=== PATIENT | male | born 1965 | race Caucasian/White ===

== ENCOUNTER 2017-01-11 10:38 | Emergency (ER) | payer OTHER ==
--- NOTE | 2017-01-11 12:01 | ED NURSING NOTES ---
Clinical Report - Nurses [facility] [address] [place] [address] 01/11/2017 10:39 Patient: MARY SIMON TRIAGE Triage time 10:45 Jan 11 2017. Chief Complaint: FALL while walking (pt taking garbage out fell on metal steps landing on left side, c/o pain, no obvious trauma exteriorally). Alert. No acute distress. SEPSIS SCREEN: Sepsis Screen. Negative (no infection suspected/documented). VIOLETA COMA SCORE: Violeta Coma Scale: 15- eyes open spontaneously (4); best verbal response- oriented x 4 (5); best motor response- obeys commands (6). --10:49 Elsa Wasserman R.N. 10:45 01/11/17. BP: 149/85. HR: 103. RR: 17. O2 saturation: 96%. Temp: 98 F. Pain level now: 03/21. --10:49 Elsa Wasserman R.N. Weight: 117.9 kg stated. Height/Length: 72 inches Per Patient. BMI: 35.3. --10:47 Elsa Wasserman R.N. Medications None. --10:46 Elsa Wasserman R.N. Medication/allergy information source: the patient. --10:49 Elsa Wasserman R.N. Allergies Penicillin. --10:46 Elsa Wasserman R.N. Codeine. --10:46 Elsa Wasserman R.N. Hydrocodone. --10:46 Elsa Wasserman R.N. History Arrived by private vehicle. Historian: patient. This occurred today. Treatment INSTRUCTIONAL TECHNOLOGY SPECIALIST: None. PAST MEDICAL HX: Tetanus status: up-to-date. Immunizations: up-to-date. SOCIAL HX: Never smoker. No alcohol use or drug use. No infectious disease exposure. ABUSE ASSESSMENT: No report of abuse. SELF HARM ASSESSMENT: A self harm assessment was performed. The patient answered "no" to the question "Do you have thoughts of harming or killing yourself?". FALL RISK ASSESSMENT: Fall risk assessment completed. No fall risk identified. NUTRITIONAL RISK ASSESSMENT: The nutritional risk assessment revealed no deficiencies. FUNCTIONAL ASSESSMENT: Functional assessment: no impairments noted. LEARNING NEEDS ASSESSMENT: The learning needs assessment revealed no barriers. SKIN INTEGRITY ASSESSMENT: Skin integrity risk assessment completed. No skin integrity risk identified. --10:49 Elsa Wasserman R.N. ADDITIONAL SURGERIES: Ankle ortho. --10:47 Elsa Wasserman R.N. Interventions ID and allergy band on patient. --10:49 Elsa Wasserman R.N. PHYSICAL ASSESSMENT Ambulatory to room. Patient gowned. GENERAL / NEURO / PSYCH: Alert. Oriented X 4. Appears in no acute distress. HEENT: Pupils equal, round and reactive to light. RESPIRATORY: Respirations not labored. CVS: Left breast area : tenderness. EXTREMITIES: Extremities exhibit normal ROM. Neuro-vascular status intact to the extremity. SKIN: Skin intact. Skin is warm and dry. --10:49 PageElsa Tobias R.N. NURSING PROGRESS NOTES Patient gowned. Reassurance given. Patient identifiers checked. Call light placed in reach. Side rails up x 1. Bed placed in lowest position. Brakes of bed on. Patient ready for evaluation- chart flagged. Patient waiting for evaluation. --10:49 Elsa Wasserman R.N. 11:44 01/11/2017 Percocet (Oxycodone-Acetaminophen) PO 10/650 mg Tablets 1 tab given. Allergies verified, confirmed 5 rights and sedative warning given to the patient. --11:44 Elsa Wasserman R.N. Patient waiting for radiology results. ( pt returned from xray- med given for pain). --11:45 Elsa Wasserman R.N. ( MD with pt explaining poc for dispo). --12:07 Elsa Wasserman R.N. DISPOSITION / DISCHARGE No learning barriers present. Discharge instructions provided and reviewed with the patient. Reviewed medication(s) side effects, precautions, dosing and course information. Prescription(s) given to the patient. Patient verbalized understanding. Written instructions provided in Japanese. The patient was discharged by the physician. He was discharged home. He left the Emergency Department ambulatory. Rotary Furnace Operator driving. ( pt given rx and f/u instructions, pt ambulatory to lobby with steady gait,). --12:28 Elsa Wasserman R.N. 12:27 01/11/17. BP: 135/74. HR: 96. RR: 17. O2 saturation: 96%. Temp: deferred. Pain level now: 02/18. --12:28 Elsa Wasserman R.N. Locked/Released at 01/11/2017 15:20 by Elas Wasserman R.N.
--- NOTE | 2017-01-11 12:01 | ED NURSING NOTES ---
Clinical Report - Nurses [facility] [address] [place] [address] 01/11/2017 10:39 Patient: MARY SIMON TRIAGE Triage time 10:45 Jan 11 2017. Chief Complaint: FALL while walking (pt taking garbage out fell on metal steps landing on left side, c/o pain, no obvious trauma exteriorally). Alert. No acute distress. SEPSIS SCREEN: Sepsis Screen. Negative (no infection suspected/documented). VIOLETA COMA SCORE: Vio[place] Coma Scale: 15- eyes open spontaneously (4); best verbal response- oriented x 4 (5); best motor response- obeys commands (6). --10:49 Elsa Wasserman R.N. 10:45 01/11/17. BP: 149/85. HR: 103. RR: 17. O2 saturation: 96%. Temp: 98 F. Pain level now: 03/21. --10:49 Elsa Wasserman R.N. Weight: 117.9 kg stated. Height/Length: 72 inches Per Patient. BMI: 35.3. --10:47 Elsa Wasserman R.N. Medications None. --10:46 Elsa Wasserman R.N. Medication/allergy information source: the patient. --10:49 Elsa Wasserman R.N. Allergies Penicillin. --10:46 Elsa Wasserman R.N. Codeine. --10:46 Elsa Wasserman R.N. Hydrocodone. --10:46 Elsa Wasserman R.N. History Arrived by private vehicle. Historian: patient. This occurred today. Treatment ICT CUSTOMER SUPPORT OFFICER: None. PAST MEDICAL HX: Tetanus status: up-to-date. Immunizations: up-to-date. SOCIAL HX: Never smoker. No alcohol use or drug use. No infectious disease exposure. ABUSE ASSESSMENT: No report of abuse. SELF HARM ASSESSMENT: A self harm assessment was performed. The patient answered "no" to the question "Do you have thoughts of harming or killing yourself?". FALL RISK ASSESSMENT: Fall risk assessment completed. No fall risk identified. NUTRITIONAL RISK ASSESSMENT: The nutritional risk assessment revealed no deficiencies. FUNCTIONAL ASSESSMENT: Functional assessment: no impairments noted. LEARNING NEEDS ASSESSMENT: The learning needs assessment revealed no barriers. SKIN INTEGRITY ASSESSMENT: Skin integrity risk assessment completed. No skin integrity risk identified. --10:49 Elsa Wasserman R.N. ADDITIONAL SURGERIES: Ankle ortho. --10:47 Elsa Wasserman R.N. Interventions ID and allergy band on patient. --10:49 Elsa Wasserman R.N. PHYSICAL ASSESSMENT Ambulatory to room. Patient gowned. GENERAL / NEURO / PSYCH: Alert. Oriented X 4. Appears in no acute distress. HEENT: Pupils equal, round and reactive to light. RESPIRATORY: Respirations not labored. CVS: Left breast area : tenderness. EXTREMITIES: Extremities exhibit normal ROM. Neuro-vascular status intact to the extremity. SKIN: Skin intact. Skin is warm and dry. --10:49 PageElsa Tobias R.N. NURSING PROGRESS NOTES Patient gowned. Reassurance given. Patient identifiers checked. Call light placed in reach. Side rails up x 1. Bed placed in lowest position. Brakes of bed on. Patient ready for evaluation- chart flagged. Patient waiting for evaluation. --10:49 Elsa Wasserman R.N. 11:44 01/11/2017 Percocet (Oxycodone-Acetaminophen) PO 10/650 mg Tablets 1 tab given. Allergies verified, confirmed 5 rights and sedative warning given to the patient. --11:44 Elsa Wasserman R.N. Patient waiting for radiology results. ( pt returned from xray- med given for pain). --11:45 Elsa Wasserman R.N. ( MD with pt explaining poc for dispo). --12:07 Elsa Wasserman R.N. DISPOSITION / DISCHARGE No learning barriers present. Discharge instructions provided and reviewed with the patient. Reviewed medication(s) side effects, precautions, dosing and course information. Prescription(s) given to the patient. Patient verbalized understanding. Written instructions provided in Persian. The patient was discharged by the physician. He was discharged home. He left the Emergency Department ambulatory. Oil Dipper driving. ( pt given rx and f/u instructions, pt ambulatory to lobby with steady gait,). --12:28 Elsa Wasserman R.N. 12:27 01/11/17. BP: 135/74. HR: 96. RR: 17. O2 saturation: 96%. Temp: deferred. Pain level now: 02/18. --12:28 Elsa Wasserman R.N. Locked/Released at 01/11/2017 15:20 by Elsa Wasserman R.N.
--- NOTE | 2017-01-11 12:01 | ED ORDER SUMMARY ---
..... Patient: MARY SIMON OrderSheet [facility] VisitID: [id number] [address] [place] [address] 51y, M Registration Date/Time: 01/11/2017 ORDER SHEET Weight: 117.9 kg (stated) Allergies: Penicillin, Codeine, Hydrocodone GENERAL ORDERS: Ribs Unilat w PA Chest Left Urgent (11:12 01/11/2017 Jesus Peña) (Ack 11:15 Yancy) (11:25 Soila R.N.) okay per patient MEDICATION ORDERS: Percocet PO 5/325 mg (HIGH ALERT MEDICATION, NOW) (11:12 01/11/2017 Jesus Peña) (Ack 11:26 KPaseble-Yaritza R.N.) (11:44 KPaseble-Yaritza R.N.) okay per patient IV FLUIDS: ORDER SHEET NOTES: [Electronically signed by Elsa Wasserman R.N. (15:20 01/11/2017)] [Electronically signed by Brandon Yancey Dr. (12:50 01/12/2017)] [Electronically locked/signed by Elsa Wasserman R.N. (15:20 01/11/2017)]
--- NOTE | 2017-01-11 12:01 | ED ORDER SUMMARY ---
..... Patient: MARY SIMON OrderSheet [facility] VisitID: [id number] [address] [place] [address] 51y, M Registration Date/Time: 01/11/2017 ORDER SHEET Weight: 117.9 kg (stated) Allergies: Penicillin, Codeine, Hydrocodone GENERAL ORDERS: Ribs Unilat w PA Chest Left Urgent (11:12 01/11/2017 Jesus Peña) (Ack 11:15 Yancy) (11:25 Soila R.N.) okay per patient MEDICATION ORDERS: Percocet PO 5/325 mg (HIGH ALERT MEDICATION, NOW) (11:12 01/11/2017 Jesus Peña) (Ack 11:26 KPaseble-Yaritza R.N.) (11:44 KPaseble-Yaritza R.N.) okay per patient IV FLUIDS: ORDER SHEET NOTES: [Electronically signed by Elsa Wasserman R.N. (15:20 01/11/2017)] [Electronically signed by Brandon Yancey Dr. (12:50 01/12/2017)] [Electronically locked/signed by Elsa Wasserman R.N. (15:20 01/11/2017)]
--- NOTE | 2017-01-11 12:01 | ED CLINICAL REPORT ---
Clinical Report - Physicians/Mid Levels [facility] [address] [place] [place] [address] 01/11/2017 10:39 Patient: MARY SIMON Time Seen: 1100. Arrived- By private vehicle. Historian- patient. HISTORY OF PRESENT ILLNESS Chief Complaint: FALL. Location of injuries- chest (left lower anterior). The injury occurred just prior to arrival today. Fell down a few stairs. Occurred at home. ( reports he tripped. no preceeding symptoms.). The patient complains of moderate pain. No blow to the head, neck pain, loss of consciousness or seizure. Not dazed. (no other areas of trauma/injury). REVIEW OF SYSTEMS No numbness, loss of vision, chest pain, difficulty breathing or weakness. No nausea, laceration or vomiting. He has no pain on weight bearing. All systems otherwise negative, except as recorded above. PAST HISTORY See nurses notes. Tetanus immunization status is up-to-date. Medications: None. Allergies: Codeine. Hydrocodone. Penicillin. SOCIAL HISTORY Never smoker. No alcohol use or drug use. No recent travel. Is a local resident. ADDITIONAL NOTES The nursing notes have been reviewed. PHYSICAL EXAM Vital Signs: 01/11/2017 10:45 BP: 149/85. HR: 103. RR: 17. O2 saturation: 96%. Temp: 98 F. Pain level now: 8/10. Tachycardic. Oxygen saturation normal. Appearance: Alert. Oriented X3. No acute distress. Head: Head non-tender. No swelling of head. No Raya's sign or raccoon eyes. Eyes: Pupils equal, round and reactive to light. Pupillary exam: Right pupil round and reactive to light directly and consensually and with accommodation. Left pupil: round and reactive to light directly and consensually and with accommodation. EOM intact. ENT: No dental injury. No hemotympanum. Pharynx normal. Neck: No decreased ROM or muscle spasm in the neck. No pain with movement of head/neck. Painless ROM. Non-tender. No vertebral tenderness. CVS: Heart sounds normal. Pulses normal. Respiratory: Chest wall injury: mild tenderness. (left lower). Breath sounds normal. No rales, wheezes, rhonchi or crepitus. (no overlying skin changes. no gross deformity.). Abdomen: No visible injury. Soft and nontender. Bowel sounds normal. Skin: Skin intact. Skin warm and dry. Normal skin color. Normal skin turgor. Neuro: [place] Coma Scale: 15- eyes open spontaneously (4); best verbal response- oriented x 3 (5); best motor response- obeys commands (6). Oriented X 3. No motor deficit. No sensory deficit. Reflexes normal. LABS, X-RAYS, AND EKG Sternum / Ribs X-rays: (PROCEDURE: XR RIBS UNILAT W/PA CHEST-LT INDICATION: TRAUMA/INJURY TECHNIQUE: Five views of the left ribs with single PA view chest. COMPARISON: None. FINDINGS: LEFT RIBS: Irregularity over the lateral seventh rib. Healed deformity of lateral left 4th rib fracture, and questionable remote eighth rib fracture. No suspicious rib lesions. CHEST: Normal cardiomediastinal contour and central vessels. Left base horizontal atelectatic changes. No significant effusion. No pneumothorax. The other osseous structures are intact. IMPRESSION: 1. Questionable acute left 7th lateral rib fracture and slight deformity of the left eighth rib, chronicity uncertain. 2. Questionable remote left 4th lateral rib fracture. 3. Left base atelectasis suggestive of splinting.). The X-rays were independently viewed by me and interpreted by the radiologist. The X-rays were discussed with the radiologist (via pacs and phone). PROGRESS AND PROCEDURES Course of Care: the patient is a pleasant 51-year-old male presenting for a precaution of left-sided rib pain following a fall. Patient will be evaluated with a chest x-ray for evaluation of any signs of occult pneumothorax. Patient is otherwise hemodynamically normal. No signs of respiratory distress. Patient is agreeable to the treatment plan. The patient's workup was remarkable for the findings above. On my initial interpretation, patient did not have any acute findings. Patient was discharged in regards to his workup as a rib contusion. Did explain to patient the diagnostic uncertainty in the emergency department for fractures and possible small fractures that will be picked up on the later final radiology read. Patient denied any signs of pneumothorax. Patient is a stable outpatient candidate. Patient was discharged. Do not fill management changed based on the radiology's read. recommended pain control and analgesia as well as continued deep breathing to reduce the risk of developing a pneumonia.discussed the patient is workup here in the emergency department including diagnosis, home care, follow-up, and return precautions. All questions have been answered. The patient expressed understanding of these instructions and was agreeable to them. Did expressed my concern with the patient having frequent falls and need to reduce the risk of future falls. Patient states that he is tripping in the same area because he is running around the house. Recommended patient be careful around the house. Also discussed with the patient his last several prescriptions for controlled substances and cautioned patient in regards to possible addiction and dependence. Disposition: Discharged. Condition: good. CLINICAL IMPRESSION 01/11/2017 10:45 BP: 149/85. HR: 103. RR: 17. O2 saturation: 96%. Temp: 98 F. Pain level now: 8/10. Hypertensive. Oxygen saturation normal. Single contusion to the left anterior chest. Essential hypertension. INSTRUCTIONS Warnings: SEDATIVE MEDICATION: You were given sedative medication during your visit. Do not drive or operate dangerous machinery. CONTROLLED SUBSTANCE WARNINGS. GENERAL WARNINGS: Return or contact your physician immediately if your condition worsens or changes unexpectedly, if not improving as expected, or if other problems arise. SPECIFICALLY, return if you develop weakness, numbness, tingling, pain or incontinence. Your Current Medications: CONTINUE TAKING THE FOLLOWING MEDICATIONS: None*. Prescription Medications: Percocet 5 mg/325 mg: take 1 tablet orally every 6 hours as needed for pain. Dispense twelve (12). No refill. Substitution is permissible. OTC Medications: Motrin (available over the counter): take according to label instructions. Follow-up: Return to the emergency department as needed. Follow up with your doctor in three days. Reason for referral: recheck today's concerns. Summary of care provided to patient via paper. Screening today revealed the patient's blood pressure to be in the hypertensive range. The patient should follow up with a primary care provider for blood pressure management. Understanding of the discharge instructions verbalized by patient. (Electronically signed by Brandon Yancey Dr. 01/12/2017 12:50)
--- NOTE | 2017-01-11 12:42 | DIAGNOSTIC IMAGING REPORT ---
PROCEDURE: XR RIBS UNILAT W/PA CHEST-LT INDICATION: TRAUMA/INJURY TECHNIQUE: Five views of the left ribs with single PA view chest. COMPARISON: None. FINDINGS: LEFT RIBS: Irregularity over the lateral seventh rib. Healed deformity of lateral left 4th rib fracture, and questionable remote eighth rib fracture. No suspicious rib lesions. CHEST: Normal cardiomediastinal contour and central vessels. Left base horizontal atelectatic changes. No significant effusion. No pneumothorax. The other osseous structures are intact. IMPRESSION: 1. Questionable acute left 7th lateral rib fracture and slight deformity of the left eighth rib, chronicity uncertain. 2. Questionable remote left 4th lateral rib fracture. 3. Left base atelectasis suggestive of splinting. 4. Findings called to the emergency room.
--- NOTE | 2017-01-12 12:50 | ED MAR SUMMARY ---
..... Medication Administration Record [facility] [address] [place] [address] Patient: MARY SIMON Visit ID: [id number] 51y, M Weight: 117.9 kg Height/Length: 72 in BMI: 35.3 ALLERGIES: Hydrocodone, Codeine, Penicillin Given 11:44 01/11/2017 Elsa Wasserman [address]orie Medication Administered: PERCOCET [PO] (OXYCODONE-ACETAMINOPHEN), Dose: 1 tab 10/650 mg Tablets PO. Medication Ordered: Percocet PO 5/325 mg (HIGH ALERT MEDICATION, NOW).
--- NOTE | 2017-01-12 12:50 | ED MED RECONCILIATION SUMMARY ---
Patient: MARY SIMON Medication Reconciliation Report [facility] VisitID: [id number] [address] [place] [address] 51y, M Registration Date/Time: 01/11/2017 Weight: 117.9 kg Height/Length: 72 in. BMI: 35.3 ALLERGIES: Codeine, Hydrocodone, Penicillin The patient's Home Medications are listed below: NONE. The source(s) of the original Home Medication information: patient The following Medications were given to the patient in the Emergency Department: Percocet [PO] PO 1 tab, administered: 01/11/2017 11:44:00 AM The following Medications were prescribed to the patient: Motrin (available over the counter): take according to label instructions. -- Brandon Yancey Dr. Percocet 5 mg/325 mg: take 1 tablet orally every 6 hours as needed for pain. Dispense twelve (12). No refill. Substitution is permissible. -- Brandon Yancey Dr.
--- NOTE | 2017-01-12 12:50 | ED MAR SUMMARY ---
..... Medication Administration Record [facility] [address] [place] [address] Patient: MARY SIMON Visit ID: [id number] 51y, M Weight: 117.9 kg Height/Length: 72 in BMI: 35.3 ALLERGIES: Hydrocodone, Codeine, Penicillin Given 11:44 01/11/2017 Elsa Wasserman RDorie Medication Administered: PERCOCET [PO] (OXYCODONE-ACETAMINOPHEN), Dose: 1 tab 10/650 mg Tablets PO. Medication Ordered: Percocet PO 5/325 mg (HIGH ALERT MEDICATION, NOW).
--- NOTE | 2017-01-12 12:50 | ED DISCHARGE INSTRUCTIONS ---
Patient: MARY SIMON General Instructions [facility] VisitID: [id number] [place] [address] 51y, M Registration Date/Time: 01/11/2017 01/11/2017 10:45 BP: 149/85. HR: 103. RR: 17. O2 saturation: 96%. Temp: 98 F. Pain level now: 8/10. Hypertensive. Oxygen saturation normal. Single contusion to the left anterior chest. Essential hypertension. INSTRUCTIONS Warnings: SEDATIVE MEDICATION: You were given sedative medication during your visit. Do not drive or operate dangerous machinery. CONTROLLED SUBSTANCE WARNINGS. GENERAL WARNINGS: Return or contact your physician immediately if your condition worsens or changes unexpectedly, if not improving as expected, or if other problems arise. SPECIFICALLY, return if you develop weakness, numbness, tingling, pain or incontinence. Your Current Medications: CONTINUE TAKING THE FOLLOWING MEDICATIONS: None*. Prescription Medications: Percocet 5 mg/325 mg: take 1 tablet orally every 6 hours as needed for pain. Dispense twelve (12). No refill. Substitution is permissible. OTC Medications: Motrin (available over the counter): take according to label instructions. Follow-up: Return to the emergency department as needed. Follow up with your doctor in three days. Reason for referral: recheck today's concerns. Summary of care provided to patient via paper. Screening today revealed the patient's blood pressure to be in the hypertensive range. The patient should follow up with a primary care provider for blood pressure management. Understanding of the discharge instructions verbalized by patient. ADDITIONAL INFORMATION Chest Contusion Acontusion is a bruise to the skin, muscle or ribs. It may cause pain, tenderness, swelling and a purplish discoloration. Contusions take a few days to a few weeks to heal. Home Care: Rest. You should not be doing any heavy lifting or strenuous exertion, or any activity that causes pain. You may use acetaminophen (Tylenol) or ibuprofen (Motrin, Advil) to control pain, unless another pain medicine was prescribed. [ NOTE: If you have chronic liver or kidney disease or ever had a stomach ulcer or GI bleeding, talk with your doctor before using these medicines.] Follow Up with your doctor during the next week or as directed. Get Prompt Medical Attention if any of the following occur: Shortness of breath Increasing chest pain with breathing Dizziness, weakness or fainting New or worsening of abdominal pain Fever of 100.4F (38C) or higher, or as directed by your healthcare provider High Blood Pressure -- To Be Confirmed [No Tx] Your blood pressure was higher today than normal. Sometimes anxiety or pain can cause a temporary rise in blood pressure that later returns to normal. If your blood pressure is high on one measurement, this does not mean that you have hypertension (a chronic illness). However, you must have your blood pressure measured again within the next few days to find out if its still high. A normal blood pressure is 120/80 or less. The first (top) number is the "systolic" pressure. The second (bottom) number is the "diastolic" pressure. Hypertension exists when either the top number is 140 or higher, OR the bottom number is 90 or higher on repeated measurements. Blood pressure in the range of 120-140 (systolic) or 80-89 (diastolic) is considered "pre-hypertension". This means your are at risk for getting hypertension. You should have regular blood pressure checks to be sure your blood pressure is not rising. Home Care: Measure your blood pressure on 3 different days and write down the results. This can be done at your doctor's office or this facility. Some pharmacies and grocery stores offer automated blood pressure machines for your use. Follow Up: If your blood pressure is "high" (over 120/80) on 2 out of 3 days, you will need to follow up with your doctor for further evaluation and treatment. DO NOT PUT THIS OFF! Untreated high blood pressure increases the risk for heart attack, also known as acute myocardial infarction, or AMI, and stroke. It is a treatable condition. Get Prompt Medical Attention if any of the following occur: Chest pain or shortness of breath Severe headache Throbbing or rushing sound in the ears Nosebleed Sudden severe abdominal pain Extreme drowsiness, confusion or fainting Dizziness or vertigo (dizziness with spinning sensation) Weakness of an arm or leg or one side of the face Difficulty with speech or vision Oxycodone Hydrochloride, Acetaminophen Oral tablet What is this medicine? ACETAMINOPHEN; OXYCODONE (a set a ALLI sully fen; ox i KOE done) is a pain reliever. It is used to treat mild to moderate pain. How should I use this medicine? Take this medicine by mouth with a full glass of water. Follow the directions on the prescription label. Take your medicine at regular intervals. Do not take your medicine more often than directed. Talk to your dispensing optician apprentice regarding the use of this medicine in children. Special care may be needed. Patients over 65 years old may have a stronger reaction and need a smaller dose. What side effects may I notice from receiving this medicine? Side effects that you should report to your doctor or health medicare contact specialist as soon as possible: allergic reactions like skin rash, itching or hives, swelling of the face, lips, or tongue breathing difficulties, wheezing confusion light headedness or fainting spells severe stomach pain yellowing of the skin or the whites of the eyes Side effects that usually do not require medical attention (report to your doctor or health medicare contact specialist if they continue or are bothersome): dizziness drowsiness nausea vomiting What may interact with this medicine? alcohol antihistamines barbiturates like amobarbital, butalbital, butabarbital, methohexital, pentobarbital, phenobarbital, thiopental, and secobarbital benztropine drugs for bladder problems like solifenacin, trospium, oxybutynin, tolterodine, hyoscyamine, and methscopolamine drugs for breathing problems like ipratropium and tiotropium drugs for certain stomach or intestine problems like propantheline, homatropine methylbromide, glycopyrrolate, atropine, belladonna, and dicyclomine general anesthetics like etomidate, ketamine, nitrous oxide, propofol, desflurane, enflurane, halothane, isoflurane, and sevoflurane medicines for depression, anxiety, or psychotic disturbances medicines for sleep muscle relaxants naltrexone narcotic medicines (opiates) for pain phenothiazines like perphenazine, thioridazine, chlorpromazine, mesoridazine, fluphenazine, prochlorperazine, promazine, and trifluoperazine scopolamine tramadol trihexyphenidyl What if I miss a dose? If you miss a dose, take it as soon as you can. If it is almost time for your next dose, take only that dose. Do not take double or extra doses. Where should I keep my medicine? Keep out of the reach of children. This medicine can be abused. Keep your medicine in a safe place to protect it from theft. Do not share this medicine with anyone. Selling or giving away this medicine is dangerous and against the law. Store at room temperature between 20 and 25 degrees C (68 and 77 degrees F). Keep container tightly closed. Protect from light. This medicine may cause accidental overdose and if it is taken by other adults, children, or pets. Flush any unused medicine down the toilet to reduce the chance of harm. Do not use the medicine after the expiration date. What should I tell my health care provider before I take this medicine? They need to know if you have any of these conditions: brain tumor Crohn's disease, inflammatory bowel disease, or ulcerative colitis drink more than 3 alcohol containing drinks per day drug abuse or addiction head injury heart or circulation problems kidney disease or problems going to the bathroom liver disease lung disease, asthma, or breathing problems an unusual or allergic reaction to acetaminophen, oxycodone, other opioid analgesics, other medicines, foods, dyes, or preservatives or trying to get breast-feeding What should I watch for while using this medicine? Tell your doctor or health medicare contact specialist if your pain does not go away, if it gets worse, or if you have new or a different type of pain. You may develop tolerance to the medicine. Tolerance means that you will need a higher dose of the medication for pain relief. Tolerance is normal and is expected if you take this medicine for a long time. Do not suddenly stop taking your medicine because you may develop a severe reaction. Your body becomes used to the medicine. This does NOT mean you are addicted. Addiction is a behavior related to getting and using a drug for a non-medical reason. If you have pain, you have a medical reason to take pain medicine. Your doctor will tell you how much medicine to take. If your doctor wants you to stop the medicine, the dose will be slowly lowered over time to avoid any side effects. You may get drowsy or dizzy. Do not drive, use machinery, or do anything that needs mental alertness until you know how this medicine affects you. Do not stand or sit up quickly, especially if you are an older patient. This reduces the risk of dizzy or fainting spells. Alcohol may interfere with the effect of this medicine. Avoid alcoholic drinks. There are different types of narcotic medicines (opiates) for pain. If you take more than one type at the same time, you may have more side effects. Give your health care provider a list of all medicines you use. Your doctor will tell you how much medicine to take. Do not take more medicine than directed. Call emergency for help if you have problems breathing. The medicine will cause constipation. Try to have a bowel movement at least every 2 to 3 days. If you do not have a bowel movement for 3 days, call your doctor or health medicare contact specialist. Do not take Tylenol (acetaminophen) or medicines that have acetaminophen with this medicine. Too much acetaminophen can be very dangerous. Many nonprescription medicines contain acetaminophen. Always read the labels carefully to avoid taking more acetaminophen. You have been given the following additional information: Chest Wall Contusion Hypertension, To Be Confirmed Oxycodone Hydrochloride, Acetaminophen Oral tablet (Electronically signed by Brandon Yancey Dr. 01/12/2017 12:50)
--- NOTE | 2017-01-12 12:50 | ED MED RECONCILIATION SUMMARY ---
Patient: MARY SIMON Medication Reconciliation Report [facility] VisitID: [id number] [place] [address] 51y, M Registration Date/Time: 01/11/2017 Weight: 117.9 kg Height/Length: 72 in. BMI: 35.3 ALLERGIES: Codeine, Hydrocodone, Penicillin The patient's Home Medications are listed below: NONE. The source(s) of the original Home Medication information: patient The following Medications were given to the patient in the Emergency Department: Percocet [PO] PO 1 tab, administered: 01/11/2017 11:44:00 AM The following Medications were prescribed to the patient: Motrin (available over the counter): take according to label instructions. -- Brandon Yancey Dr. Percocet 5 mg/325 mg: take 1 tablet orally every 6 hours as needed for pain. Dispense twelve (12). No refill. Substitution is permissible. -- Brandon Yancey Dr.
== END 2017-01-11 12:19 | disposition home or self-care (01) ==
LOC: ED SRH 10:38
DX: S20.02XA Contusion of left breast, initial encounter (principal); W10.9XXA Fall (on) (from) unspecified stairs and steps, initial encounter; Y93.01 Activity, walking, marching and hiking; Y99.9 Unspecified external cause status; Y92.009 Unspecified place in unspecified non-institutional (private) residence as the place of occurrence of the external cause; Z88.0 Allergy status to penicillin; Z88.5 Allergy status to narcotic agent